=== PATIENT | male | born 1975 | race Caucasian/White ===

== ENCOUNTER 2022-09-17 10:10 | Outpatient (CLI) | payer OTHER, SELFPAY ==
[2022-09-17 17:15] LABS: Chloride* 103 mmol/L (96-114)
[2022-09-17 17:16] LABS: Potassium* 4.7 mmol/L (3.6-5.1); Sodium* 139 mmol/L (135-149)
[2022-09-17 17:18] LABS: Carbon Dioxide* 24 mmol/L (20-32); Cholesterol* 225 mg/dL (90-199); Creatinine* 0.9 mg/dL (0.5-1.5); Estimated Glomerular Filt Rate 107 ml/min
[2022-09-17 17:19] LABS: Blood Urea Nitrogen* 17 mg/dL (5-24); Calcium* 9.5 mg/dL (8.4-10.6); Glucose* 89 mg/dL (60-115); HDL Cholesterol* 37 mg/dL (>=40); LDL Cholesterol Calculated 131 mg/dL (<100); Triglycerides* 287 mg/dL (40-149)
== END 2022-09-17 10:11 | disposition home or self-care (01) ==
PROVIDERS: PCP Family Medicine; Visit Provider Family Medicine
DX: Z00.00 Encounter for general adult medical examination without abnormal findings (principal); Z13.1 Encounter for screening for diabetes mellitus; Z13.6 Encounter for screening for cardiovascular disorders
CPT/HCPCS: 80048; 80061

== ENCOUNTER 2024-11-06 12:07 | Outpatient (CLI) | payer OTHER, SELFPAY ==
--- NOTE | 2024-11-06 13:13 | W.ANESCHARGE ---
Anesthesia Charges Start Date/Time Anesthesia Start Date: 11/06/24 Anesthesia Start Time: 12:44 Stop Date/Time Anesthesia Stop Date: 11/06/24 Anesthesia Stop Time: 13:12
--- NOTE | 2024-11-06 14:01 | W.ANESCHARGE ---
Anesthesia Charges Start Date/Time Anesthesia Start Date: 11/06/24 Anesthesia Start Time: 12:44 Stop Date/Time Anesthesia Stop Date: 11/06/24 Anesthesia Stop Time: 13:12
== END 2024-11-06 12:08 | disposition home or self-care (01) ==
LOC: OP CLINIC 12:07
PROVIDERS: PCP Family Medicine; Visit Provider Internal Medicine
DX: Z12.11 Encounter for screening for malignant neoplasm of colon (principal)
CPT/HCPCS: 00811; 00812; 45378; J2704